=== PATIENT | female | born 1950 | race Two or more races ===

== ENCOUNTER 2021-07-20 08:42 | Outpatient (CLI) | payer OTHER | END 2021-07-20 08:46 | disposition home or self-care (01) | LOC: SONOGRAMA 08:42 | PROVIDERS: ATTEND Pathology Anatomic Pathology & Clinical Pathology | DX: D34 Benign neoplasm of thyroid gland (principal); E07.89 Other specified disorders of thyroid; E04.8 Other specified nontoxic goiter ==

== ENCOUNTER 2021-12-28 08:26 | Outpatient (CLI) | payer OTHER | END 2021-12-28 08:29 | disposition home or self-care (01) | LOC: SONOGRAMA 08:26 | PROVIDERS: ATTEND Pathology Anatomic Pathology & Clinical Pathology | DX: E04.1 Nontoxic single thyroid nodule (principal) ==

== ENCOUNTER 2022-11-15 09:38 | Outpatient (CLI) | payer OTHER | END 2022-11-15 09:47 | disposition home or self-care (01) | LOC: SONOGRAMA 09:38 | PROVIDERS: ATTEND Pathology Anatomic Pathology & Clinical Pathology | DX: D34 Benign neoplasm of thyroid gland (principal); E04.1 Nontoxic single thyroid nodule ==